=== PATIENT | female | born 1980 | race Caucasian/White ===

== ENCOUNTER 2022-03-06 10:16 | Emergency (ER) | payer OTHER, MEDICAID, SELFPAY ==
[2022-03-06] VITALS (8 sets, daily range): BP systolic 109–122; BP diastolic 61–83; PULSE 65–87; RESP 15; TEMP 37.3; O2SAT 96–98; BMI 22.8
[2022-03-06 11:28] LABS: Bacteria Urine Many (>30); Culture Indicated Urine Specimen Cultured; RBC Urine 1-5/HPF (0-5/HPF); Squamous Epithelial Cell Urine 1-5 /HPF (0-5/HPF); WBC Urine 5-10/HPF (0-5/HPF)
--- NOTE | 2022-03-06 11:46 | PC.NURSE ---
Reports history of kidney infection 2-3 years ago and this episode feels similar. Had urinary symptoms a couple weeks ago but was trying home remedies first. Denies urinary symptoms now, but has mid back pain 3/10. Also reporting throat pain when she talks for the past 3 weeks. Denies cough, congestion or pain with swallowing. History of jaw infection and has multiple issues with my teeth.
[2022-03-06] MEDS: SODIUM CHLORIDE 0.9% 1,000 ML 1000 ML IV (12:51)
[2022-03-06] MEDS: ONDANSETRON 4 MG/2 ML INJ IV (12:52)
[2022-03-06] MEDS: KETOROLAC 30 MG/ML VIAL 15 MG IV (12:52)
[2022-03-06] MEDS: HYDROMORPHONE 0.5 MG INJ IV (12:52)
[2022-03-06 13:01] LABS: Add Manual Diff / Slide Review NO; Basophils Absolute Auto 0 /uL (0-100); Basophils Percent Auto 0.6 % (0-2); Eosinophils Absolute Auto 0 /uL (0-450); Eosinophils Percent Auto 0.6 % (2-4); Hematocrit 39.5 % (36-46); Hemoglobin 13.6 g/dL (12.0-16.0); Lymphocytes Absolute Auto 800 /uL (1100-4500); Mean Corpuscular HGB Conc 34.5 % (30-36); Mean Corpuscular Hemoglobin 31.5 PG (26-34); Mean Corpuscular Volume 91.2 fL (80-100); Monocytes Absolute Auto 700 /uL (0-900); Monocytes Percent Auto 14.7 % (3-14); Neutrophils Absolute Auto 3000 /uL (1500-7000); Neutrophils Percent Auto 67.1 % (50-75); Platelet Count 326 X10^3/uL (150-400); Red Blood Cell Count 4.33 X10^6/uL (4.0-5.2); Red Cell Distribution Width 13.1 % (11.6-14.8); White Blood Cell Count 4.5 X10^3/uL (4.5-11.0)
[2022-03-06 13:02] LABS: Lactate (Lactic Acid) 0.7 mmol/L (0.7-2.1)
[2022-03-06 13:03] LABS: Alanine Aminotransferase 24 IU/L (<35); Albumin 3.7 g/dL (3.5-5.0); Albumin Globulin Ratio 1.2 (1.0-2.8); Alkaline Phosphatase 76 U/L (38-126); Aspartate Aminotransferase 32 IU/L (14-36); BUN Creatinine Ratio 6.5 (6-22); Bilirubin Total 0.4 mg/dL (0.2-1.3); Blood Urea Nitrogen 4 mg/dL (7-17); Calcium 8.7 mg/dL (8.4-10.2); Carbon Dioxide 25 mmol/L (22-32); Chloride 107 mmol/L (98-107); Estimated Glomerular Filt Rate > 60 mL/min (>60); Globulin 3.1 g/dL (1.7-4.1); Glucose 103 mg/dL (70-100); HEMOLYSIS < 15 (0-50); Lipase 60 U/L (23-300); Potassium 3.7 mmol/L (3.4-5.1); Sodium 138 mmol/L (137-145); Total Protein 6.8 g/dL (6.3-8.2)
[2022-03-06] MEDS: cefTRIAXone 1,000 MG in SODIUM CHLORIDE 0.9% 100 ML 200 MG IV (13:14)
[2022-03-06 13:19] LABS: Procalcitonin 0.04 ng/mL (<0.5)
--- NOTE | 2022-03-06 13:22 | CM.SWNOTE ---
DCP Note RN requests FACILITATOR to provide patient with state insurance information and dental coverage. Patient is 41 y/o female who presents to ED due to concern for dental infection and kidney infection. Patient recently moved from [place] and was set up with state Medicaid insurance there. FACILITATOR provides patient with website and phone number to apply for [facility] medicaid and provides patient with information about dental coverage and list of dental providers that accept medicaid. Plan: patient to d/c to home upon medical clearance, patient to seek state insurance and dental health care provider for dental treatment. SAURABH BrooksSW
--- NOTE | 2022-03-06 14:03 | ED.FEMALEGU ---
HPI - Female Genitourinary <LENORA Wasserman - Last Filed: 03/06/22 16:00> General Chief complaint: Urogenital-Female Stated complaint: throat/dental/back/kidney pain x3 weeks Time Seen by Provider: 03/06/22 12:09 Source: patient Mode of arrival: Ambulatory History of Present Illness HPI Narrative: This is a 41-year-old female presents to the emergency department with chills that started last night, multiple complaints including sweating last night, muscle aches, dental decay with concern for oral infection, subjective fever and nausea without vomiting. Patient states that she is had the dental problems for many weeks and has had antibiotics multiple times for them. She has a history of allergy to penicillins. Does not have a primary care provider. She denies any, states that she has some congestion, and her throat is sore. Related Data Previous Rx's Medication Instructions Recorded cefuroxime axetil 500 mg tablet 500 mg PO BID 7 days #14 tabs 03/06/22 chlorhexidine gluconate 0.12 % 15 ml buccal DAILY #118 mL 03/06/22 mouthwash ondansetron HCl 4 mg tablet 4 mg PO Q8H PRN nausea and 03/06/22 vomiting #14 tabs Allergies Allergy/AdvReac Type Severity Reaction Status Date / Time Penicillins Allergy Verified 03/06/22 10:35 Review of Systems <LENORA Wasserman - Last Filed: 03/06/22 16:00> Review of Systems Narrative: Review of systems is negative for acute abnormalities unless otherwise noted in HPI Patient History <LENORA Wasserman - Last Filed: 03/06/22 16:00> alcohol intake frequency: holidays/special occasions only Substance Use Type: marijuana Exam <LENORA Wasserman Last Filed: 03/06/22 16:00> Narrative Exam Narrative: Reviewed vitals signs and nursing notes. General: cooperative, comfortable, in mild acute distress HEENT: symmetrical facial expressions, moist mucous membranes, poor dental hygiene, dental decay and gingival erythema, mild anterior cervical lymphadenopathy on the right, uvula is midline, throat culture obtained, malodorous breath, patient is a smoker, no visible open wounds or abscesses intro or cavity Cardiovascular: Tachycardic rate and regular rhythm, no peripheral edema, warm extremities Respiratory: normal effort, able to speak in complete sentences, without wheezing, stridor, or abnormal breath sounds. No retractions or tachypnea. GI: abdomen soft, nontender to palpation, nondistended, without masses, rebound tenderness or exquisite tenderness with exam. 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, vaginal discharge is thin and clear, without tenderness during exam, wet mount obtained from vaginal discharge, no speculum exam MSK: moves all extremities, neurovascularly intact, no weakness, normal tone Skin: brisk capillary refill, without pallor or erythema Neuro: normal speech and cognition, A&O x3, ambulatory, clear speech Psych: mental status is grossly normal, congruent mood, normal affect, pleasant and cooperative Initial Vital Signs Initial Vital Signs: Vital Signs Temperature 99.2 F 03/06/22 10:30 Pulse Rate 65 03/06/22 10:30 Respiratory Rate 15 03/06/22 10:30 Blood Pressure 119/61 03/06/22 10:30 Pulse Oximetry 98 03/06/22 10:30 Oxygen Delivery Method 03/06/22 10:30 <Cortes Suarez MD - Last Filed: 03/07/22 07:10> Initial Vital Signs Initial Vital Signs: Vital Signs Temperature 99.2 F 03/06/22 10:30 Pulse Rate 65 03/06/22 10:30 Respiratory Rate 15 03/06/22 10:30 Blood Pressure 119/61 03/06/22 10:30 Pulse Oximetry 98 03/06/22 10:30 Oxygen Delivery Method 03/06/22 10:30 Course <LENORA Wasserman - Last Filed: 03/06/22 16:00> Orders Ordered: Discontinued Medications Hydromorphone HCl (Hydromorphone 0.5 Mg Inj) 0.5 mg IV NOW ONE Stop: 03/06/22 12:35 Last Admin: 03/06/22 12:52 Dose: 0.5 mg Documented By: JANUARY Sodium Chloride (Normal Saline 0.9%) 1,000 mls @ 1,000 mls/hr IV BOLUS ONE Stop: 03/06/22 13:33 Last Infusion: 03/06/22 14:06 Dose: 0 mls/hr Documented By: Admin: 03/06/22 12:51 Dose: 1,000 mls/hr Documented By: JANUARY Ceftriaxone Sodium 1,000 mg/ (Sodium Chloride) 100 mls @ 200 mls/hr IV NOW ONE Stop: 03/06/22 12:47 Last Infusion: 03/06/22 14:07 Dose: 0 mls/hr Documented By: Admin: 03/06/22 13:14 Dose: 200 mls/hr Documented By: JANUARY Sodium Chloride (Normal Saline 0.9%) 1,000 mls @ 1,000 mls/hr IV BOLUS ONE Stop: 03/06/22 13:45 Last Admin: 03/06/22 13:23 Dose: Not Given Documented By: JANUARY Ketorolac Tromethamine (Ketorolac 30 Mg/Ml Vial) 15 mg IV NOW ONE Stop: 03/06/22 12:35 Last Admin: 03/06/22 12:52 Dose: 15 mg Documented By: JANUARY Ondansetron HCl (Ondansetron 4 Mg/2 Ml Inj) 4 mg IV NOW ONE Stop: 03/06/22 12:35 Last Admin: 03/06/22 12:52 Dose: 4 mg Documented By: JANUARY Vital Signs Vital signs: Vital Signs - 8 hr 03/06/22 10:30 03/06/22 11:29 03/06/22 11:29 Temperature 99.2 F Pulse Rate 65 87 Respiratory Rate 15 Blood Pressure 119/61 113/69 Pulse Oximetry 98 98 Oxygen Delivery Method Room Air Room Air 03/06/22 11:30 03/06/22 11:30 03/06/22 12:00 Temperature Pulse Rate 83 Respiratory Rate Blood Pressure 109/67 112/77 Pulse Oximetry 98 Oxygen Delivery Method Room Air 03/06/22 12:00 03/06/22 12:30 03/06/22 12:30 Temperature Pulse Rate 80 82 Respiratory Rate Blood Pressure 122/83 Pulse Oximetry 98 98 Oxygen Delivery Method 03/06/22 13:00 03/06/22 13:00 03/06/22 13:30 Temperature Pulse Rate 79 Respiratory Rate Blood Pressure 111/68 115/64 Pulse Oximetry 97 Oxygen Delivery Method 03/06/22 13:30 03/06/22 14:00 03/06/22 14:00 Temperature Pulse Rate 78 72 Respiratory Rate Blood Pressure 114/74 Pulse Oximetry 96 96 Oxygen Delivery Method <Cortes Suarez MD - Last Filed: 03/07/22 07:10> Orders Ordered: Discontinued Medications Hydromorphone HCl (Hydromorphone 0.5 Mg Inj) 0.5 mg IV NOW ONE Stop: 03/06/22 12:35 Last Admin: 03/06/22 12:52 Dose: 0.5 mg Documented By: JANUARY Sodium Chloride (Normal Saline 0.9%) 1,000 mls @ 1,000 mls/hr IV BOLUS ONE Stop: 03/06/22 13:33 Last Infusion: 03/06/22 14:06 Dose: 0 mls/hr Documented By: Admin: 03/06/22 12:51 Dose: 1,000 mls/hr Documented By: JANUARY Ceftriaxone Sodium 1,000 mg/ (Sodium Chloride) 100 mls @ 200 mls/hr IV NOW ONE Stop: 03/06/22 12:47 Last Infusion: 03/06/22 14:07 Dose: 0 mls/hr Documented By: Admin: 03/06/22 13:14 Dose: 200 mls/hr Documented By: JANUARY Sodium Chloride (Normal Saline 0.9%) 1,000 mls @ 1,000 mls/hr IV BOLUS ONE Stop: 03/06/22 13:45 Last Admin: 03/06/22 13:23 Dose: Not Given Documented By: JANUARY Ketorolac Tromethamine (Ketorolac 30 Mg/Ml Vial) 15 mg IV NOW ONE Stop: 03/06/22 12:35 Last Admin: 03/06/22 12:52 Dose: 15 mg Documented By: JANUARY Ondansetron HCl (Ondansetron 4 Mg/2 Ml Inj) 4 mg IV NOW ONE Stop: 03/06/22 12:35 Last Admin: 03/06/22 12:52 Dose: 4 mg Documented By: JANUARY Vital Signs Vital signs: Vital Signs - 8 hr 03/06/22 10:30 03/06/22 11:29 03/06/22 11:29 Temperature 99.2 F Pulse Rate 65 87 Respiratory Rate 15 Blood Pressure 119/61 113/69 Pulse Oximetry 98 98 Oxygen Delivery Method Room Air Room Air 03/06/22 11:30 03/06/22 11:30 03/06/22 12:00 Temperature Pulse Rate 83 Respiratory Rate Blood Pressure 109/67 112/77 Pulse Oximetry 98 Oxygen Delivery Method Room Air 03/06/22 12:00 03/06/22 12:30 03/06/22 12:30 Temperature Pulse Rate 80 82 Respiratory Rate Blood Pressure 122/83 Pulse Oximetry 98 98 Oxygen Delivery Method 03/06/22 13:00 03/06/22 13:00 03/06/22 13:30 Temperature Pulse Rate 79 Respiratory Rate Blood Pressure 111/68 115/64 Pulse Oximetry 97 Oxygen Delivery Method 03/06/22 13:30 03/06/22 14:00 03/06/22 14:00 Temperature Pulse Rate 78 72 Respiratory Rate Blood Pressure 114/74 Pulse Oximetry 96 96 Oxygen Delivery Method MDM - Female Genitourinary <LENORA Wasserman - Last Filed: 03/06/22 16:00> Lab Data Result diagrams: 03/06/22 12:54 03/06/22 12:54 Labs: Lab Results 03/06/22 03/06/22 03/06/22 Range/Units 10:38 12:54 12:54 WBC 4.5 (4.5-11.0) X10^3/uL RBC 4.33 (4.0-5.2) X10^6/uL Hgb 13.6 (12.0-16.0) g/dL Hct 39.5 (36-46) % MCV 91.2 (80-100) fL MCH 31.5 (26-34) PG MCHC 34.5 (30-36) % RDW 13.1 (11.6-14.8) % Plt Count 326 (150-400) X10^3/uL Neut % (Auto) 67.1 (50-75) % Lymph % (Auto) 17.0 L (25-40) % [place] % (Auto) 14.7 H (3-14) % Eos % (Auto) 0.6 L (2-4) % Baso % (Auto) 0.6 (0-2) % Neut # (Auto) 3000 (9416-5080) /uL Lymph # (Auto) 800 L (8772-7307) /uL [place] # (Auto) 700 (0-900) /uL Eos # (Auto) 0 (0-450) /uL Baso # (Auto) 0 (0-100) /uL Sodium 138 (137-145) mmol/L Potassium 3.7 (3.4-5.1) mmol/L Chloride 107 (98-107) mmol/L Carbon Dioxide 25 (22-32) mmol/L BUN 4 L (7-17) mg/dL Creatinine 0.62 (0.52-1.04) mg/dL Estimated GFR > 60 (>60) mL/min BUN/Creatinine Ratio 6.5 (6-22) Glucose 103 H (70-100) mg/dL Lactate (0.7-2.1) mmol/L Calcium 8.7 (8.4-10.2) mg/dL Total Bilirubin 0.4 (0.2-1.3) mg/dL AST 32 (14-36) IU/L ALT 24 (<35) IU/L Alkaline Phosphatase 76 (38-126) U/L Total Protein 6.8 (6.3-8.2) g/dL Albumin 3.7 (3.5-5.0) g/dL Globulin 3.1 (1.7-4.1) g/dL Albumin/Globulin Ratio 1.2 (1.0-2.8) Lipase 60 (23-300) U/L Procalcitonin 0.04 (<0.5) ng/mL Urine RBC 1-5/hpf (0-5/HPF) Urine WBC 5-10/hpf H (0-5/HPF) Ur Squamous Epith Cells 1-5 /hpf (0-5/HPF) Urine Bacteria Many (>30) H (None) Ur Culture Indicated? Specimen cultured SARS-CoV-2 (PCR) (Negative) Influenza A (RT-PCR) (NEGATIVE) Influenza B (RT-PCR) (NEGATIVE) RSV (PCR) (Negative) 03/06/22 03/06/22 Range/Units 12:54 13:40 WBC (4.5-11.0) X10^3/uL RBC (4.0-5.2) X10^6/uL Hgb (12.0-16.0) g/dL Hct (36-46) % MCV (80-100) fL MCH (26-34) PG MCHC (30-36) % RDW (11.6-14.8) % Plt Count (150-400) X10^3/uL Neut % (Auto) (50-75) % Lymph % (Auto) (25-40) % [place] % (Auto) (3-14) % Eos % (Auto) (2-4) % Baso % (Auto) (0-2) % Neut # (Auto) (4861-3833) /uL Lymph # (Auto) (8707-7348) /uL [place] # (Auto) (0-900) /uL Eos # (Auto) (0-450) /uL Baso # (Auto) (0-100) /uL Sodium (137-145) mmol/L Potassium (3.4-5.1) mmol/L Chloride (98-107) mmol/L Carbon Dioxide (22-32) mmol/L BUN (7-17) mg/dL Creatinine (0.52-1.04) mg/dL Estimated GFR (>60) mL/min BUN/Creatinine Ratio (6-22) Glucose (70-100) mg/dL Lactate 0.7 (0.7-2.1) mmol/L Calcium (8.4-10.2) mg/dL Total Bilirubin (0.2-1.3) mg/dL AST (14-36) IU/L ALT (<35) IU/L Alkaline Phosphatase (38-126) U/L Total Protein (6.3-8.2) g/dL Albumin (3.5-5.0) g/dL Globulin (1.7-4.1) g/dL Albumin/Globulin Ratio (1.0-2.8) Lipase (23-300) U/L Procalcitonin (<0.5) ng/mL Urine RBC (0-5/HPF) Urine WBC (0-5/HPF) Ur Squamous Epith Cells (0-5/HPF) Urine Bacteria (None) Ur Culture Indicated? SARS-CoV-2 (PCR) Negative (Negative) Influenza A (RT-PCR) Flu a positive H (NEGATIVE) Influenza B (RT-PCR) Flu b negative (NEGATIVE) RSV (PCR) Negative (Negative) Urine Dip Bedside Urine Glucose Negative Bedside Urine Bilirubin - Negative Bedside Urine Ketone - Negative Urine Specific Heidrick 1.030 Bedside Urine Occult Blood +++ Bedside Urine pH 6.0 Bedside Urine Protein + 30 Bedside Urine Urobilinogen - Negative Bedside Urine Nitrite + Positive Bedside Urine Leukocytes - Negative Esterase MDM Narrative Medical decision making narrative: This is a 41-year-old female presents to the emergency department for fever, chills, dental decay, and suprapubic pressure with nausea. Patient's urine was found to have bacteria and wbc's, wet mount was obtained as patient states she may have vaginal irritation and that was negative for abnormality. Her lab work did not have any significant findings and is unremarkable, respiratory panel is positive for influenza a, patient was phoned and left a message on her voicemail since she left prior to these results. Other possible diagnosis' considered include; viral URI, influenza, pneumonia, pharyngitis, acute bronchitis, allergic rhinitis, pertussis, sinusitis, appendicitis, dehydration. Rest, drink plenty of fluids, NSAIDS for muscle aches and pains. Return to ED for worsening symptoms such as SOB, chest pain, inability to take adequate oral fluids, fever, or productive cough. No peritoneal signs on abdominal exam. Patient remains p.o. tolerant. Serial abdominal exam without increase in abdominal pain. Given history and exam, low suspicion for acute abdominal process, such as acute cholecystitis, pancreatitis, perforated viscus, atypical appendicitis, colitis, diverticulitis or torsion. Extensive conversation about ER return precautions and need for close follow-up. Other possible diagnosis' considered include; viral URI, influenza, pneumonia, pharyngitis, acute bronchitis, allergic rhinitis, pertussis, sinusitis, appendicitis, dehydration. Rest, drink plenty of fluids, NSAIDS for muscle aches and pains. Return to ED for worsening symptoms such as SOB, chest pain, inability to take adequate oral fluids, fever, or productive cough. Patient is appropriate and amenable to discharge home. Vital signs are stable on repeat examination is unremarkable. Patient has been informed of results. Patient has been given strict return to ER precautions for any new or worsening symptoms. Patient understands to follow up closely with outpatient providers as instructed. Patient understands plan and agrees to discharge home. All questions and concerns answered at this time. <Cortes Suarez MD - Last Filed: 03/07/22 07:10> Lab Data Labs: Lab Results 03/06/22 03/06/22 03/06/22 Range/Units 10:38 12:54 12:54 WBC 4.5 (4.5-11.0) X10^3/uL RBC 4.33 (4.0-5.2) X10^6/uL Hgb 13.6 (12.0-16.0) g/dL Hct 39.5 (36-46) % MCV 91.2 (80-100) fL MCH 31.5 (26-34) PG MCHC 34.5 (30-36) % RDW 13.1 (11.6-14.8) % Plt Count 326 (150-400) X10^3/uL Neut % (Auto) 67.1 (50-75) % Lymph % (Auto) 17.0 L (25-40) % [place] % (Auto) 14.7 H (3-14) % Eos % (Auto) 0.6 L (2-4) % Baso % (Auto) 0.6 (0-2) % Neut # (Auto) 3000 (0203-1303) /uL Lymph # (Auto) 800 L (2231-8890) /uL [place] # (Auto) 700 (0-900) /uL Eos # (Auto) 0 (0-450) /uL Baso # (Auto) 0 (0-100) /uL Sodium 138 (137-145) mmol/L Potassium 3.7 (3.4-5.1) mmol/L Chloride 107 (98-107) mmol/L Carbon Dioxide 25 (22-32) mmol/L BUN 4 L (7-17) mg/dL Creatinine 0.62 (0.52-1.04) mg/dL Estimated GFR > 60 (>60) mL/min BUN/Creatinine Ratio 6.5 (6-22) Glucose 103 H (70-100) mg/dL Lactate (0.7-2.1) mmol/L Calcium 8.7 (8.4-10.2) mg/dL Total Bilirubin 0.4 (0.2-1.3) mg/dL AST 32 (14-36) IU/L ALT 24 (<35) IU/L Alkaline Phosphatase 76 (38-126) U/L Total Protein 6.8 (6.3-8.2) g/dL Albumin 3.7 (3.5-5.0) g/dL Globulin 3.1 (1.7-4.1) g/dL Albumin/Globulin Ratio 1.2 (1.0-2.8) Lipase 60 (23-300) U/L Procalcitonin 0.04 (<0.5) ng/mL Urine RBC 1-5/hpf (0-5/HPF) Urine WBC 5-10/hpf H (0-5/HPF) Ur Squamous Epith Cells 1-5 /hpf (0-5/HPF) Urine Bacteria Many (>30) H (None) Ur Culture Indicated? Specimen cultured SARS-CoV-2 (PCR) (Negative) Influenza A (RT-PCR) (NEGATIVE) Influenza B (RT-PCR) (NEGATIVE) RSV (PCR) (Negative) 03/06/22 03/06/22 Range/Units 12:54 13:40 WBC (4.5-11.0) X10^3/uL RBC (4.0-5.2) X10^6/uL Hgb (12.0-16.0) g/dL Hct (36-46) % MCV (80-100) fL MCH (26-34) PG MCHC (30-36) % RDW (11.6-14.8) % Plt Count (150-400) X10^3/uL Neut % (Auto) (50-75) % Lymph % (Auto) (25-40) % [place] % (Auto) (3-14) % Eos % (Auto) (2-4) % Baso % (Auto) (0-2) % Neut # (Auto) (9700-6241) /uL Lymph # (Auto) (1437-7469) /uL [place] # (Auto) (0-900) /uL Eos # (Auto) (0-450) /uL Baso # (Auto) (0-100) /uL Sodium (137-145) mmol/L Potassium (3.4-5.1) mmol/L Chloride (98-107) mmol/L Carbon Dioxide (22-32) mmol/L BUN (7-17) mg/dL Creatinine (0.52-1.04) mg/dL Estimated GFR (>60) mL/min BUN/Creatinine Ratio (6-22) Glucose (70-100) mg/dL Lactate 0.7 (0.7-2.1) mmol/L Calcium (8.4-10.2) mg/dL Total Bilirubin (0.2-1.3) mg/dL AST (14-36) IU/L ALT (<35) IU/L Alkaline Phosphatase (38-126) U/L Total Protein (6.3-8.2) g/dL Albumin (3.5-5.0) g/dL Globulin (1.7-4.1) g/dL Albumin/Globulin Ratio (1.0-2.8) Lipase (23-300) U/L Procalcitonin (<0.5) ng/mL Urine RBC (0-5/HPF) Urine WBC (0-5/HPF) Ur Squamous Epith Cells (0-5/HPF) Urine Bacteria (None) Ur Culture Indicated? SARS-CoV-2 (PCR) Negative (Negative) Influenza A (RT-PCR) Flu a positive H (NEGATIVE) Influenza B (RT-PCR) Flu b negative (NEGATIVE) RSV (PCR) Negative (Negative) Urine Dip Bedside Urine Glucose Negative Bedside Urine Bilirubin - Negative Bedside Urine Ketone - Negative Urine Specific [place] 1.030 Bedside Urine Occult Blood +++ Bedside Urine pH 6.0 Bedside Urine Protein + 30 Bedside Urine Urobilinogen - Negative Bedside Urine Nitrite + Positive Bedside Urine Leukocytes - Negative Esterase Discharge Plan Departure Patient Disposition: Home Clinical Impression: Complicated urinary tract infection, Dental decay, Influenza A Instructions: DI for Kidney Infection, DI for Urinary Tract Infection (UTI) Activity Restrictions/Additional Instructions: *You have been diagnosed with a complicated urinary tract infection and likely influenza or another viral respiratory illness. I have sent chlorhexidine mouthwash to the pharmacy for daily use as needed. Please use ibuprofen, Tylenol as needed for your pain. Please stay hydrated, follow-up at the [facility] dental clinic for your mouth, they have medical care available also in [place] and I have appended their contact information. Please take all of your antibiotics, return for worsening condition, I hope you feel better soon. *What to do: *Please continue to take your regular medications as directed. [x ] New medication prescriptions sent to your pharmacy: [[facility]] [ ] New medication written as a paper prescription [ ] No new medications given *Please follow up with your primary care provider in 2-3 days, call for an appointment. Let them know you were seen in the Emergency Department and that we asked that you be seen for follow-up. We will electronically transmit a record of today's note if your PCP is in our system *If you do not have a primary care provider please contact [phone] to establish care with one of the [facility] primary care providers. [facility] in [place] Address: [address] [place] [address] P: [phone] F: [phone] *Return to Emergency Department if you should have any new, worsening, or concerning symptoms, such as [fever greater than 101F, chills, worsening pain, persistent vomiting or other bothersome symptoms]. [facility] dental clinic in [place] P: [phone] 8:30 a.m. - 4:30 p.m.Address: [address] [place] [address] P: [phone] F: [phone] Hours: 8:00 a.m. - 5:00 p.m. Tuesday - Saturdays children only For Appointments: P: [phone] 8:30 a.m. - 4:30 p.m. Prescriptions: New cefuroxime axetil 500 mg tablet 500 mg PO BID 7 Days Qty: 14 0RF chlorhexidine gluconate 0.12 % mouthwash 15 ml buccal DAILY Qty: 118 0RF ondansetron HCl 4 mg tablet 4 mg PO Q8H PRN (Reason: nausea and vomiting) Qty: 14 0RF Visit Report Forms: Patient Portal/API <Cortes Suarez MD - Last Filed: 03/07/22 07:10> Cosign ED Attending Cosignature Attestation: I was immediately available in the department for consultation. ?This documentation has been reviewed and I agree with assessment and plan. Supervised by Cortes Suarez MD
[2022-03-06 14:25] LABS: Influenza A - CEPHEID Flu A POSITIVE (NEGATIVE); Influenza B - CEPHEID Flu B NEGATIVE (NEGATIVE); Respiratory Syncytial Virus Negative (Negative)
[2022-03-06 14:27] LABS: COVID-19 CEPHEID 4-PLEX PCR Negative (Negative)
[2022-03-10 01:01] LABS: Acinetobacter baumannii Not Detected (Not Detect); Candida albicans Not Detected (Not Detect); Candida glabrata Not Detected (Not Detect); Candida krusei Not Detected (Not Detect); Candida parapsilosis Not Detected (Not Detect); Candida tropicalis Not Detected (Not Detect); E. coli Not Detected (Not Detect); Enterobacter cloacae complex Not Detected (Not Detect); Enterobacteriaceae species Not Detected (Not Detect); Enterococcus species Not Detected (Not Detect); Haemophilus influenzae Not Detected (Not Detect); Listeria monocytogenes Not Detected (Not Detect); Neisseria meningitidis Not Detected (Not Detect); Proteus species Not Detected (Not Detect); Pseudomonas aeruginosa Not Detected (Not Detect); Serratia marcescens Not Detected (Not Detect); Staphylococcus species Not Detected (Not Detect); Streptococcus agalactiae (Gr B Not Detected (Not Detect); Streptococcus pneumonia Not Detected (Not Detect); Streptococcus pyogenes (Gr A) Not Detected (Not Detect); Streptococcus species Not Detected (Not Detect)
--- NOTE | 2022-03-10 01:06 | PC.NURSE ---
Lab called regarding positive blood culture,gram positive bacilli in one aerobic blood culture.DR Esteban notified.
== END 2022-03-06 14:16 | disposition home or self-care (01) ==
PROVIDERS: Emergency Medicine; Emergency Provider Nurse Practitioner Critical Care Medicine
DX: N39.0 Urinary tract infection, site not specified (principal); J10.1 Influenza due to other identified influenza virus with other respiratory manifestations; K02.9 Dental caries, unspecified; R11.2 Nausea with vomiting, unspecified; R00.0 Tachycardia, unspecified; Z20.822 Contact with and (suspected) exposure to COVID-19
CPT/HCPCS: 0241U; 36415; 80053; 81003; 81015; 83605; 83690; 84145; 85025; 87040; 87070; 87077; 87086; 87150; 87186; 87210; 96365; 96375; 99284; J0696; J1170; J1885; J2405

== ENCOUNTER 2022-03-13 14:49 | Emergency (ER) | payer OTHER, MEDICAID, SELFPAY ==
[2022-03-13 15:42] VITALS: BP 118/69; PULSE 76; RESP 19; TEMP 36.9; O2SAT 98; BMI 23.6
[2022-03-13 15:59] LABS: Appearance Urine UA CLEAR; Bilirubin Urine UA NEGATIVE (NEGATIVE); Color Urine UA YELLOW; Glucose Urine UA NEGATIVE (Negative); Ketones Urine UA 1+ (NEGATIVE); Leukocyte Esterase Urine UA NEGATIVE (NEGATIVE); Nitrite Urine UA NEGATIVE (Negative); Occult Blood Urine UA 1+ (Negative); Protein Urine UA TRACE (Negative); Urobilinogen Urine UA 0.2 E.U./dL (0.2)
[2022-03-13 16:40] LABS: Bacteria Urine Occasional (0-1); RBC Urine 1-5/HPF (0-5/HPF); WBC Urine 1-5/HPF (0-5/HPF)
[2022-03-13 16:41] LABS: Culture Indicated Urine Cult Not Indicated; Squamous Epithelial Cell Urine 1-5 /HPF (0-5/HPF)
--- NOTE | 2022-03-13 17:29 | ED.RECABL ---
HPI - Recheck/Abnormal Lab/Rx <LENORA Wasserman - Last Filed: 03/13/22 19:58> General Chief Complaint: Recheck/Abnormal Lab/Rx Stated Complaint: Bacteria in blood per patient Time Seen by Provider: 03/13/22 17:03 Source: patient Mode of arrival: Family Vehicle History of Present Illness HPI narrative: This is a 41-year-old female returns to the emergency department after requested to do so for 1 of 2 positive blood cultures growing g positive bacilli from her visit on 03/06/2022. Patient states that she has been getting better at home but still has some symptoms, her dysuria has improved, she denies vomiting, fever or chills recently. Discussed with patient her symptoms over the phone prior to her coming in, she states that she is getting a little bit better it has not gotten. Her blood culture result is likely contaminant since it was only of 1 of 2 bottles. There was no final result. Called the lab, they state that it likely finalized without explanation and they were not sure what happened. Patient denies fever, chills, nausea vomiting, worsening symptoms. Description of abnormal result: [facility] [place] [facility] CLIA ID [id number] [address] [place] [address] RUN DATE: 03/13/22 Specimen Inquiry PAGE 1 RUN TIME: 1755 Name: Ady Ward Age/Sex: 41/F Attend Dr: Inna Espitia Unit#: [id number] : 1980Location: ED Re03/06/22 Disch: Status: DEP ER SPEC #: [id number] DIEGO: 03/06/22 STATUS: RES REQ #: [id number] SPDESC: RECD: 03/06/[address]: Inna Espitia SOURCE: Blood ENTR: 03/06/22-[address]: FAX TO: ORDERED: Bcult Procedure Result Verified Site Blood Culture Preliminary 03/13/22-1318 Gram Stain #1 Gram positive bacilli Organism 1 Gram positive bacilli BC Comments Isolated in Aerobic Bottle only Called To: SHLOMO This organism was isolated from one bottle; probable contaminant. [facility] [place] [facility] CLIA ID [id number] [address] [place] [id number] RUN DATE: 03/13/22 Specimen Inquiry PAGE 1 RUN TIME: 1755 Name: Ady Ward Age/Sex: 41/F Attend Dr[id number] Unit#: [id number] : 1980Location: ED Re03/06/22 Disch: Status: DEP ER SPEC #: [id number] DIEGO: 03/06/22 STATUS: COMP REQ #: [id number] SPDESC: RECD: 03/06/[address]: Inna Espitia SOURCE: Blood ENTR: 03/06/22-[address]: FAX TO: ORDERED: Bcult Procedure Result Verified Site Blood Culture Final 03/11/22 NO GROWTH AFTER 5 DAYS NO GROWTH AFTER 5 DAYS Related Data Previous Rx's Medication Instructions Recorded chlorhexidine gluconate 0.12 % 15 ml buccal DAILY #118 mL 03/06/22 mouthwash ondansetron HCl 4 mg tablet 4 mg PO Q8H PRN nausea and 03/06/22 vomiting #14 tabs Allergies Allergy/AdvReac Type Severity Reaction Status Date / Time Penicillins Allergy Verified 03/06/22 10:35 Review of Systems <LENORA Wasserman - Last Filed: 03/13/22 19:58> Review of Systems Narrative: Review of systems is negative for acute abnormalities unless otherwise noted in HPI Patient History <LENORA Wasserman - Last Filed: 03/13/22 19:58> Social History Smoking Status: Current every day smoker Smoking Status: Current every day smoker tobacco type: cigarettes alcohol intake frequency: holidays/special occasions only Substance Use Type: marijuana Exam <LENORA Wasserman - Last Filed: 03/13/22 19:58> Narrative Exam Narrative: Reviewed vitals signs and nursing notes. General: cooperative, comfortable, in no acute distress, well groomed HEENT: symmetrical facial expressions, moist mucous membranes, poor dental hygiene with decay Cardiovascular: regular rate and rhythm, no peripheral edema, warm extremities GI: abdomen soft, nontender to palpation, nondistended, without masses, rebound tenderness or exquisite tenderness with exam. MSK: moves all extremities, neurovascularly intact, no weakness, normal tone Skin: brisk capillary refill, without pallor or erythema Neuro: normal speech and cognition, A&O x3, ambulatory, clear speech Psych: mental status is grossly normal, congruent mood, normal affect, pleasant and cooperative Initial Vital Signs Initial Vital Signs: Vital Signs Temperature 98.4 F 03/13/22 15:42 Pulse Rate 76 03/13/22 15:42 Respiratory Rate 19 03/13/22 15:42 Blood Pressure 118/69 03/13/22 15:42 Pulse Oximetry 98 03/13/22 15:42 Oxygen Delivery Method 03/13/22 15:42 <Radha Mcclain DO - Last Filed: 03/15/22 12:40> Initial Vital Signs Initial Vital Signs: Vital Signs Temperature 98.4 F 03/13/22 15:42 Pulse Rate 76 03/13/22 15:42 Respiratory Rate 19 03/13/22 15:42 Blood Pressure 118/69 03/13/22 15:42 Pulse Oximetry 98 03/13/22 15:42 Oxygen Delivery Method 03/13/22 15:42 Course <LENORA Wasserman - Last Filed: 03/13/22 19:58> Orders Ordered: ED Orders 03/13/22 15:47 Urinalysis and Microscopic Stat 03/13/22 17:30 Complete Blood Count AUTO DIFF Stat Comprehensive Metabolic Panel Stat Lactate (Lactic Acid) Stat Lipase Stat Partial Thromboplastin Time Stat Procalcitonin Stat Prothrombin Time INR Stat Vital Signs Vital signs: Vital Signs - 8 hr 03/13/22 15:42 03/13/22 17:44 Temperature 98.4 F 98.3 F Pulse Rate 76 72 Respiratory Rate 19 16 Blood Pressure 118/69 120/79 Pulse Oximetry 98 98 Oxygen Delivery Method Room Air Room Air <Radha Mcclain DO - Last Filed: 03/15/22 12:40> Orders Ordered: ED Orders 03/13/22 15:47 Urinalysis and Microscopic Stat 03/13/22 17:30 Complete Blood Count AUTO DIFF Stat Comprehensive Metabolic Panel Stat Lactate (Lactic Acid) Stat Lipase Stat Partial Thromboplastin Time Stat Procalcitonin Stat Prothrombin Time INR Stat Vital Signs Vital signs: Vital Signs - 8 hr 03/13/22 15:42 03/13/22 17:44 Temperature 98.4 F 98.3 F Pulse Rate 76 72 Respiratory Rate 19 16 Blood Pressure 118/69 120/79 Pulse Oximetry 98 98 Oxygen Delivery Method Room Air Room Air MDM - Recheck/Abnormal Lab/Rx <LENORA Wasserman - Last Filed: 03/13/22 19:58> Lab Data Result diagrams: 03/13/22 17:30 03/13/22 17:30 Labs: Lab Results 03/13/22 03/13/22 03/13/22 Range/Units 15:47 17:30 17:30 WBC 7.0 (4.5-11.0) X10^3/uL RBC 4.43 (4.0-5.2) X10^6/uL Hgb 13.9 (12.0-16.0) g/dL Hct 40.2 (36-46) % MCV 90.8 (80-100) fL MCH 31.4 (26-34) PG MCHC 34.5 (30-36) % RDW 13.4 (11.6-14.8) % Plt Count 435 H (150-400) X10^3/uL Neut % (Auto) 41.7 L (50-75) % Lymph % (Auto) 43.8 H (25-40) % Clay % (Auto) 5.5 (3-14) % Eos % (Auto) 8.0 H (2-4) % Baso % (Auto) 1.0 (0-2) % Neut # (Auto) 2900 (7603-2020) /uL Lymph # (Auto) 3000 (2694-6800) /uL Clay # (Auto) 400 (0-900) /uL Eos # (Auto) 600 H (0-450) /uL Baso # (Auto) 100 (0-100) /uL PT 11.2 (10.1-12.7) SECONDS INR 1.0 (0.9-1.3) APTT 27 (26-36) SECONDS Sodium (137-145) mmol/L Potassium (3.4-5.1) mmol/L Chloride (98-107) mmol/L Carbon Dioxide (22-32) mmol/L BUN (7-17) mg/dL Creatinine (0.52-1.04) mg/dL Estimated GFR (>60) mL/min BUN/Creatinine Ratio (6-22) Glucose (70-100) mg/dL Lactate (0.7-2.1) mmol/L Calcium (8.4-10.2) mg/dL Total Bilirubin (0.2-1.3) mg/dL AST (14-36) IU/L ALT (<35) IU/L Alkaline Phosphatase (38-126) U/L Total Protein (6.3-8.2) g/dL Albumin (3.5-5.0) g/dL Globulin (1.7-4.1) g/dL Albumin/Globulin Ratio (1.0-2.8) Lipase (23-300) U/L Procalcitonin (<0.5) ng/mL Urine Color Yellow Urine Appearance Clear Urine pH 7.0 (4.5-8.0) Ur Specific Isabela 1.020 (1.000-1.035) Urine Protein Trace H (Negative) Urine Glucose (UA) Negative (Negative) g/dL Urine Ketones 1+ H (NEGATIVE) Urine Occult Blood 1+ H (Negative) Urine Nitrate Negative (Negative) Urine Bilirubin Negative (NEGATIVE) Urine Urobilinogen 0.2 (0.2) E.U./dL Ur Leukocyte Esterase Negative (NEGATIVE) Urine RBC 1-5/hpf (0-5/HPF) Urine WBC 1-5/hpf (0-5/HPF) Ur Squamous Epith Cells 1-5 /hpf (0-5/HPF) Urine Bacteria Occasional (0-1) (None) Ur Culture Indicated? Cult not indicated 03/13/22 03/13/22 Range/Units 17:30 17:30 WBC (4.5-11.0) X10^3/uL RBC (4.0-5.2) X10^6/uL Hgb (12.0-16.0) g/dL Hct (36-46) % MCV (80-100) fL MCH (26-34) PG MCHC (30-36) % RDW (11.6-14.8) % Plt Count (150-400) X10^3/uL Neut % (Auto) (50-75) % Lymph % (Auto) (25-40) % Clay % (Auto) (3-14) % Eos % (Auto) (2-4) % Baso % (Auto) (0-2) % Neut # (Auto) (3911-0626) /uL Lymph # (Auto) (5783-0013) /uL Clay # (Auto) (0-900) /uL Eos # (Auto) (0-450) /uL Baso # (Auto) (0-100) /uL PT (10.1-12.7) SECONDS INR (0.9-1.3) APTT (26-36) SECONDS Sodium 140 (137-145) mmol/L Potassium 3.8 (3.4-5.1) mmol/L Chloride 105 (98-107) mmol/L Carbon Dioxide 28 (22-32) mmol/L BUN 11 (7-17) mg/dL Creatinine 0.66 (0.52-1.04) mg/dL Estimated GFR > 60 (>60) mL/min BUN/Creatinine Ratio 16.7 (6-22) Glucose 93 (70-100) mg/dL Lactate 0.8 (0.7-2.1) mmol/L Calcium 8.5 (8.4-10.2) mg/dL Total Bilirubin 0.5 (0.2-1.3) mg/dL AST 33 (14-36) IU/L ALT 49 H (<35) IU/L Alkaline Phosphatase 104 (38-126) U/L Total Protein 6.9 (6.3-8.2) g/dL Albumin 4.0 (3.5-5.0) g/dL Globulin 2.9 (1.7-4.1) g/dL Albumin/Globulin Ratio 1.4 (1.0-2.8) Lipase 58 (23-300) U/L Procalcitonin 0.03 (<0.5) ng/mL Urine Color Urine Appearance Urine pH (4.5-8.0) Ur Specific Isabela (1.000-1.035) Urine Protein (Negative) Urine Glucose (UA) (Negative) g/dL Urine Ketones (NEGATIVE) Urine Occult Blood (Negative) Urine Nitrate (Negative) Urine Bilirubin (NEGATIVE) Urine Urobilinogen (0.2) E.U./dL Ur Leukocyte Esterase (NEGATIVE) Urine RBC (0-5/HPF) Urine WBC (0-5/HPF) Ur Squamous Epith Cells (0-5/HPF) Urine Bacteria (None) Ur Culture Indicated? MDM Narrative Medical decision making narrative: This is a 41-year-old female presents to the emergency department for a positive blood culture bottle growing Gram-positive bacilli on 03/06/2022 from her blood cultures, she was treated for urosepsis, was influenza A positive, and 1 of 2 bottles was positive for Gram-positive bacilli which did not finally result or did and there was a documentation air. Today her lab work was repeated, she had a medical screening evaluation, she does not have any signs of infection today, she is still taking her cefuroxime which was prescribed for urinary tract infection. Patient's lab work is unremarkable, her symptoms have improved, encouraged to stay hydrated and to come back for any worsening condition. Patient is appropriate and amenable to discharge home. Vital signs are stable on repeat examination is unremarkable. Patient has been informed of results. Patient has been given strict return to ER precautions for any new or worsening symptoms. Patient understands to follow up closely with outpatient providers as instructed. Patient understands plan and agrees to discharge home. All questions and concerns answered at this time. <Radha Mcclain, DO - Last Filed: 03/15/22 12:40> Lab Data Labs: Lab Results 03/13/22 03/13/22 03/13/22 Range/Units 15:47 17:30 17:30 WBC 7.0 (4.5-11.0) X10^3/uL RBC 4.43 (4.0-5.2) X10^6/uL Hgb 13.9 (12.0-16.0) g/dL Hct 40.2 (36-46) % MCV 90.8 (80-100) fL MCH 31.4 (26-34) PG MCHC 34.5 (30-36) % RDW 13.4 (11.6-14.8) % Plt Count 435 H (150-400) X10^3/uL Neut % (Auto) 41.7 L (50-75) % Lymph % (Auto) 43.8 H (25-40) % Clay % (Auto) 5.5 (3-14) % Eos % (Auto) 8.0 H (2-4) % Baso % (Auto) 1.0 (0-2) % Neut # (Auto) 2900 (6240-4534) /uL Lymph # (Auto) 3000 (1121-0613) /uL Clay # (Auto) 400 (0-900) /uL Eos # (Auto) 600 H (0-450) /uL Baso # (Auto) 100 (0-100) /uL PT 11.2 (10.1-12.7) SECONDS INR 1.0 (0.9-1.3) APTT 27 (26-36) SECONDS Sodium (137-145) mmol/L Potassium (3.4-5.1) mmol/L Chloride (98-107) mmol/L Carbon Dioxide (22-32) mmol/L BUN (7-17) mg/dL Creatinine (0.52-1.04) mg/dL Estimated GFR (>60) mL/min BUN/Creatinine Ratio (6-22) Glucose (70-100) mg/dL Lactate (0.7-2.1) mmol/L Calcium (8.4-10.2) mg/dL Total Bilirubin (0.2-1.3) mg/dL AST (14-36) IU/L ALT (<35) IU/L Alkaline Phosphatase (38-126) U/L Total Protein (6.3-8.2) g/dL Albumin (3.5-5.0) g/dL Globulin (1.7-4.1) g/dL Albumin/Globulin Ratio (1.0-2.8) Lipase (23-300) U/L Procalcitonin (<0.5) ng/mL Urine Color Yellow Urine Appearance Clear Urine pH 7.0 (4.5-8.0) Ur Specific Isabela 1.020 (1.000-1.035) Urine Protein Trace H (Negative) Urine Glucose (UA) Negative (Negative) g/dL Urine Ketones 1+ H (NEGATIVE) Urine Occult Blood 1+ H (Negative) Urine Nitrate Negative (Negative) Urine Bilirubin Negative (NEGATIVE) Urine Urobilinogen 0.2 (0.2) E.U./dL Ur Leukocyte Esterase Negative (NEGATIVE) Urine RBC 1-5/hpf (0-5/HPF) Urine WBC 1-5/hpf (0-5/HPF) Ur Squamous Epith Cells 1-5 /hpf (0-5/HPF) Urine Bacteria Occasional (0-1) (None) Ur Culture Indicated? Cult not indicated 03/13/22 03/13/22 Range/Units 17:30 17:30 WBC (4.5-11.0) X10^3/uL RBC (4.0-5.2) X10^6/uL Hgb (12.0-16.0) g/dL Hct (36-46) % MCV (80-100) fL MCH (26-34) PG MCHC (30-36) % RDW (11.6-14.8) % Plt Count (150-400) X10^3/uL Neut % (Auto) (50-75) % Lymph % (Auto) (25-40) % Clay % (Auto) (3-14) % Eos % (Auto) (2-4) % Baso % (Auto) (0-2) % Neut # (Auto) (6884-9529) /uL Lymph # (Auto) (6195-1066) /uL Clay # (Auto) (0-900) /uL Eos # (Auto) (0-450) /uL Baso # (Auto) (0-100) /uL PT (10.1-12.7) SECONDS INR (0.9-1.3) APTT (26-36) SECONDS Sodium 140 (137-145) mmol/L Potassium 3.8 (3.4-5.1) mmol/L Chloride 105 (98-107) mmol/L Carbon Dioxide 28 (22-32) mmol/L BUN 11 (7-17) mg/dL Creatinine 0.66 (0.52-1.04) mg/dL Estimated GFR > 60 (>60) mL/min BUN/Creatinine Ratio 16.7 (6-22) Glucose 93 (70-100) mg/dL Lactate 0.8 (0.7-2.1) mmol/L Calcium 8.5 (8.4-10.2) mg/dL Total Bilirubin 0.5 (0.2-1.3) mg/dL AST 33 (14-36) IU/L ALT 49 H (<35) IU/L Alkaline Phosphatase 104 (38-126) U/L Total Protein 6.9 (6.3-8.2) g/dL Albumin 4.0 (3.5-5.0) g/dL Globulin 2.9 (1.7-4.1) g/dL Albumin/Globulin Ratio 1.4 (1.0-2.8) Lipase 58 (23-300) U/L Procalcitonin 0.03 (<0.5) ng/mL Urine Color Urine Appearance Urine pH (4.5-8.0) Ur Specific Isabela (1.000-1.035) Urine Protein (Negative) Urine Glucose (UA) (Negative) g/dL Urine Ketones (NEGATIVE) Urine Occult Blood (Negative) Urine Nitrate (Negative) Urine Bilirubin (NEGATIVE) Urine Urobilinogen (0.2) E.U./dL Ur Leukocyte Esterase (NEGATIVE) Urine RBC (0-5/HPF) Urine WBC (0-5/HPF) Ur Squamous Epith Cells (0-5/HPF) Urine Bacteria (None) Ur Culture Indicated? Discharge Plan Departure Patient Disposition: Home Clinical Impression: Encounter for medical screening examination Activity Restrictions/Additional Instructions: *You have been diagnosed with improvement of your infection and blood work. The antibiotics appear to have help treat your infection. There is no signs of infection in your urine today. Please stay hydrated, continue treating her symptoms as needed, ibuprofen and Tylenol and follow-up with a dentist whenever you can. Thank you for coming back in, I hope you feel better and can get some rest tonight. Thank you for your patience, sorry for the long day. *What to do: *Please continue to take your regular medications as directed. [ ] New medication prescriptions sent to your pharmacy: [ ] [ ] New medication written as a paper prescription [ x] No new medications given *Please follow up with your primary care provider in 2-3 days, call for an appointment. Let them know you were seen in the Emergency Department and that we asked that you be seen for follow-up. We will electronically transmit a record of today's note if your PCP is in our system *If you do not have a primary care provider please contact [phone] to establish care with one of the [facility] [place] [facility] primary care providers. *Return to Emergency Department if you should have any new, worsening, or concerning symptoms, such as [fever greater than 101F, chills, worsening pain, persistent vomiting or other bothersome symptoms]. Prescriptions: No Action chlorhexidine gluconate 0.12 % mouthwash 15 ml buccal DAILY Qty: 118 0RF ondansetron HCl 4 mg tablet 4 mg PO Q8H PRN (Reason: nausea and vomiting) Qty: 14 0RF Visit Report Forms: Patient Portal/API <Radha Mcclain DO - Last Filed: 03/15/22 12:40> Cosign ED Attending Justin Attestation: I was immediately available in the department for consultation. Documentation has been reviewed. Case was discussed. Patient had 1 of 2 positive blood cultures from 03/06 and a positive urine culture with Klebsiella pneumonia. Blood culture is only Gram-positive bacilli and has not been resulted farther although it has been 5 days. Patient had been called back for re-evaluation felt safe for disposition home.
[2022-03-13 17:44] VITALS: BP 120/79; PULSE 72; RESP 16; TEMP 36.8; O2SAT 98
[2022-03-13 18:00] LABS: Prothrombin Time 11.2 SECONDS (10.1-12.7)
[2022-03-13 18:03] LABS: PTT Partial Thromboplastin Tim 27 SECONDS (26-36)
[2022-03-13 18:04] LABS: Lactate (Lactic Acid) 0.8 mmol/L (0.7-2.1)
[2022-03-13 18:06] LABS: Alanine Aminotransferase 49 IU/L (<35); Albumin Globulin Ratio 1.4 (1.0-2.8); Alkaline Phosphatase 104 U/L (38-126); Aspartate Aminotransferase 33 IU/L (14-36); BUN Creatinine Ratio 16.7 (6-22); Bilirubin Total 0.5 mg/dL (0.2-1.3); Blood Urea Nitrogen 11 mg/dL (7-17); Calcium 8.5 mg/dL (8.4-10.2); Carbon Dioxide 28 mmol/L (22-32); Chloride 105 mmol/L (98-107); Estimated Glomerular Filt Rate > 60 mL/min (>60); Globulin 2.9 g/dL (1.7-4.1); Glucose 93 mg/dL (70-100); HEMOLYSIS < 15 (0-50); Lipase 58 U/L (23-300); Potassium 3.8 mmol/L (3.4-5.1); Sodium 140 mmol/L (137-145); Total Protein 6.9 g/dL (6.3-8.2)
[2022-03-13 18:11] LABS: Add Manual Diff / Slide Review NO; Basophils Absolute Auto 100 /uL (0-100); Eosinophils Absolute Auto 600 /uL (0-450); Hematocrit 40.2 % (36-46); Hemoglobin 13.9 g/dL (12.0-16.0); Lymphocytes Absolute Auto 3000 /uL (1100-4500); Lymphocytes Percent Auto 43.8 % (25-40); Mean Corpuscular HGB Conc 34.5 % (30-36); Mean Corpuscular Hemoglobin 31.4 PG (26-34); Mean Corpuscular Volume 90.8 fL (80-100); Monocytes Absolute Auto 400 /uL (0-900); Monocytes Percent Auto 5.5 % (3-14); Neutrophils Absolute Auto 2900 /uL (1500-7000); Neutrophils Percent Auto 41.7 % (50-75); Platelet Count 435 X10^3/uL (150-400); Red Blood Cell Count 4.43 X10^6/uL (4.0-5.2); Red Cell Distribution Width 13.4 % (11.6-14.8)
[2022-03-13 18:21] LABS: Procalcitonin 0.03 ng/mL (<0.5)
== END 2022-03-13 18:56 | disposition home or self-care (01) ==
PROVIDERS: Emergency Medicine; Emergency Provider Nurse Practitioner Critical Care Medicine
DX: Z11.2 Encounter for screening for other bacterial diseases (principal)
CPT/HCPCS: 36415; 80053; 81001; 83605; 83690; 84145; 85025; 85610; 85730; 99281; 99283

== ENCOUNTER 2023-03-02 04:32 | Emergency (ER) | payer OTHER, SELFPAY ==
--- NOTE | 2023-03-02 04:45 | ED.GENADULT ---
HPI - General Adult General Chief complaint: Extremity Injury, Lower Stated complaint: left knee throbbing and pain Time Seen by Provider: 03/02/23 04:37 History of Present Illness HPI narrative: Otherwise healthy 42-year-old woman who describes a planted foot twisting body injury to the left knee about 7:00 pm last night. She thought that symptoms would improve, went to bed and woke her up in the middle of the night and she is been unable to sleep or bear weight on the knee since. She has not taken any home medications. She describes no fevers, redness to the knee, ankle or hip injury. Related Data Previous Rx's Medication Instructions Recorded chlorhexidine gluconate 0.12 % 15 ml buccal DAILY #118 mL 03/06/22 mouthwash ondansetron HCl 4 mg tablet 4 mg PO Q8H PRN nausea and 03/06/22 vomiting #14 tabs Allergies Allergy/AdvReac Type Severity Reaction Status Date / Time Penicillins Allergy Verified 03/02/23 04:52 Review of Systems Review of Systems Narrative: Pertinent positive and negative findings as per HPI Patient History Social History Smoking Status: Current every day smoker Smoking Status: Current every day smoker tobacco type: cigarettes alcohol intake frequency: holidays/special occasions only Substance Use Type: marijuana Exam Initial Vital Signs Initial Vital Signs: Vital Signs Temperature 98.0 F 03/02/23 04:46 Pulse Rate 76 03/02/23 04:46 Respiratory Rate 18 03/02/23 04:46 Blood Pressure 103/61 03/02/23 04:46 Pulse Oximetry 98 03/02/23 04:46 Oxygen Delivery Method Room Air 03/02/23 04:46 General: Alert appropriate in no acute distress Respiratory: Able to speak in full sentences, no obvious respiratory distress Skin: No obvious rashes, warm and dry Neurologic: Grossly intact no obvious asymmetries or abnormalities Psych: appropriate insight and affect, cooperative Extremity: Left hip and left ankle are unremarkable. She is got a small left knee effusion with tenderness along the lateral collateral ligament. There is no associated bony tenderness. She is able to extend the knee fully but can flex only approximately 10? secondary to pain. There is no tenderness into the gastroc muscle. Course Orders Ordered: ED Orders 03/02/23 04:53 XR knee LT 3V Stat Discontinued Medications Ibuprofen (Ibuprofen 400 Mg Tablet) 400 mg PO NOW ONE Stop: 03/02/23 04:54 Last Admin: 03/02/23 05:07 Dose: 400 mg Documented By: TAURUS Ondansetron HCl (Ondansetron 4 Mg Odt) 4 mg SL NOW ONE Stop: 03/02/23 05:18 Last Admin: 03/02/23 05:27 Dose: 4 mg Documented By: UMAIR Oxycodone/Acetaminophen (Oxycodone/Acetaminophen 5/325 Tablet) 1 tab PO NOW ONE Stop: 03/02/23 04:54 Last Admin: 03/02/23 05:06 Dose: 1 tab Documented By: TAURUS Oxycodone/Acetaminophen (Oxycodone/Apap 5/325 Prepack) 1 bottle MISC DIRECTED ONE Stop: 03/02/23 04:54 Last Admin: 03/02/23 05:07 Dose: 1 bottle Documented By: TAURUS Vital Signs Vital signs: Vital Signs - 8 hr 03/02/23 04:46 03/02/23 04:53 03/02/23 05:02 Temperature 98.0 F Pulse Rate 76 78 Pulse Rate [Left Dorsalis Pedis] 71 Respiratory Rate 18 Blood Pressure 103/61 Pulse Oximetry 98 99 Oxygen Delivery Method Room Air Room Air Medical Decision Making MDM Narrative Medical decision making narrative: CC: Acute left knee pain Data collected from: patient Differential considered: Fracture, ligamentous injury, strain doubt infectious etiology Exam documented above, pertinent findings include: Left knee pain with lateral collateral ligament tenderness. Pain is too much to fully assess knee stability. No tenderness over patella Imaging studies independently reviewed: X-ray shows no acute bony injury Treatments: Oral ibuprofen and Percocet Procedure: Left knee immobilizer is placed without difficulty by me. She is neurovascularly intact. Crutches are used and nursing staff helps with education. Discussion: X-ray is unremarkable for bony injury. Patient is feeling somewhat better after ibuprofen and Percocet. She placed in a knee immobilizer with suspicion for left lateral collateral knee strain. Explained to her the need for making sure the knee is stable, using crutches as required, adequate pain control and ice. If she is not improving she will need to follow-up with [facility] and may need advanced imaging at that time. She is given information to contact them if symptoms are not improving. She is safe for discharge Discharge Plan Departure Patient Disposition: Home Clinical Impression: Knee Injury Qualifiers: Encounter type: initial encounter Laterality: left Qualified Code(s): S89.92XA - Unspecified injury of left lower leg, initial encounter Instructions: DI for Knee Sprain Activity Restrictions/Additional Instructions: Thank you for coming in today I believe that you strained the lateral collateral ligament of your knee. The x-rays do not show any broken bones. Using the knee immobilizer to make sure that your knee does not give out on you causing further injury as well as ice for inflammation may be helpful. Using 400 mg of ibuprofen (2 [id number] pills) and 1 Tylenol every 6 hours to control pain and for severe pain using 400 mg of ibuprofen and 1 Percocet. Percocet does have narcotic in it and likely will make you constipated. I would recommend adding a stool softener. Please call to schedule a ER follow-up appointment with [facility] at [phone] within the next week If you find that you are getting worse or develop any new symptoms, please feel free to return to the emergency department for further evaluation. Prescriptions: No Action chlorhexidine gluconate 0.12 % mouthwash 15 ml buccal DAILY Qty: 118 0RF ondansetron HCl 4 mg tablet 4 mg PO Q8H PRN (Reason: nausea and vomiting) Qty: 14 0RF Referrals: Miscellaneous,Doctor, MD [Primary Care Provider] - Stand Alone Forms: Patient Portal/API
[2023-03-02 04:46] VITALS: BP 103/61; PULSE 76; RESP 18; TEMP 36.7; O2SAT 98; BMI 24.3
[2023-03-02 04:53] VITALS: PULSE 71
--- NOTE | 2023-03-02 04:53 | DI.RAD.S_ITS ---
PROCEDURE: XR KNEE LT 3V INDICATIONS: twisting injury to knee TECHNIQUE: 3 views of the knee were acquired. COMPARISON: None. FINDINGS: Bones: No fractures or dislocations. No suspicious bony lesions. Normal alignment. Joint spaces are maintained. Soft tissues: No joint effusion. No suspicious soft tissue calcifications. IMPRESSION: No acute bony abnormality or significant effusion. Dictated by: Shaina Ramachandran M.D. on 03/02/2023 at 8:21 Approved by: Shaina Ramachandran M.D. on 03/02/2023 at 8:23
[2023-03-02 05:02] VITALS: PULSE 78; O2SAT 99
[2023-03-02] MEDS: OXYCODONE/ACETAMINOPHEN 5/325 TABLET 1 TAB PO (05:06)
[2023-03-02] MEDS: IBUPROFEN 400 MG TABLET PO (05:07)
[2023-03-02] MEDS: OXYCODONE/APAP 5/325 PREPACK 1 BOTTLE MISC (05:07)
[2023-03-02] MEDS: ONDANSETRON 4 MG ODT SL (05:27)
[2023-03-02 05:30] VITALS: BP 120/70; PULSE 74; O2SAT 99
[2023-03-02 06:00] VITALS: BP 115/73; PULSE 87; O2SAT 97
--- NOTE | 2023-03-02 18:06 | PC.NURSE ---
Pt called stating that she did not feel she was treated properly as she was prescribed only a pre pack of percocet. Reviewed discharge instructions. Pt is requesting additional narcotic pain medication. I informed her that she would have to return to the emergency department if she wanted additional prescriptions however the attending on duty would evaluate her and I could not guarantee that the provider would prescribe what she was requesting. Pt states staff was kind/thorough, she just wanted additional pain medication and thought we should have done better. She denies any change in condition. Encouraged to f/u as needed and indicated and return for any needs, concerns, worsening of symptoms.
== END 2023-03-02 06:13 | disposition home or self-care (01) ==
PROVIDERS: Emergency Provider Emergency Medicine
DX: S89.82XA Other specified injuries of left lower leg, initial encounter (principal); X50.0XXA Overexertion from strenuous movement or load, initial encounter
CPT/HCPCS: 73562; 99283; 99284

== ENCOUNTER 2023-10-24 20:47 | Emergency (ER) | payer OTHER, SELFPAY ==
[2023-10-24 20:49] VITALS: BP 134/77; PULSE 87; RESP 16; TEMP 36.6; O2SAT 100; BMI 24.5
--- NOTE | 2023-10-24 21:14 | ED_ITS ---
HPI - General Adult General Chief complaint: Dental/Oral Stated complaint: impacted tooth/face swelling/heart feels weird Time Seen by Provider: 10/24/23 20:52 Source: patient Mode of arrival: Ambulatory History of Present Illness HPI narrative: 42-year-old woman with no significant medical history notes she has her 2nd molar left upper broken off at the root. She has had intermittent episodes with infection at that site. Over the last 24 hours she is noticed some tenderness and now some facial swelling. The pain has been controlled with Naprosyn at home. She is hoping to get some antibiotics to avoid significant complications. She is also concerned that she is more anxious and that the infection is spreading through her body. She did have a glass of wine prior to arrival to help with both anxiety and pain control. Vital signs on arrival are completely unremarkable. Related Data Previous Rx's Medication Instructions Recorded chlorhexidine gluconate 0.12 % 15 ml buccal DAILY #118 mL 03/06/22 mouthwash ondansetron HCl 4 mg tablet 4 mg PO Q8H PRN nausea and 03/06/22 vomiting #14 tabs clindamycin HCl 300 mg capsule 300 mg PO TID 7 days #21 caps 10/24/23 Allergies Allergy/AdvReac Type Severity Reaction Status Date / Time Penicillins AdvReac Childhood Verified 10/24/23 20:49 reaction Review of Systems Review of Systems Narrative: Pertinent positive and negative findings as per HPI Patient History Social History Smoking Status: Current every day smoker Smoking Status: Current every day smoker tobacco type: cigarettes alcohol intake frequency: holidays/special occasions only Substance Use Type: marijuana Exam Initial Vital Signs Initial Vital Signs: Vital Signs Temperature 97.9 F 10/24/23 20:49 Pulse Rate 87 10/24/23 20:49 Respiratory Rate 16 10/24/23 20:49 Blood Pressure 134/77 10/24/23 20:49 Pulse Oximetry 100 10/24/23 20:49 Oxygen Delivery Method Room Air 10/24/23 20:49 General: Alert appropriate in no acute distress HEENT: There is some minor fullness over her left maxillary area with no obvious abscess or drainage. No significant cervical adenopathy Respiratory: Able to speak in full sentences, no obvious respiratory distress Skin: No obvious rashes, warm and dry Neurologic: Grossly intact no obvious asymmetries or abnormalities Psych: appropriate insight and affect, cooperative Course Vital Signs Vital signs: Vital Signs - 8 hr 10/24/23 20:49 Temperature 97.9 F Pulse Rate 87 Respiratory Rate 16 Blood Pressure 134/77 Pulse Oximetry 100 Oxygen Delivery Method Room Air Medical Decision Making MDM Narrative Medical decision making narrative: CC: Facial swelling and dental pain Complicating co-morbidities: Known fractured tooth Data collected from: patient Social determinants of health that may influence the patients condition: Patient has not had dental insurance until recently, is planning to contact dentist tomorrow for definitive treatment Differential considered: Dental abscess, sinusitis, cellulitis Exam documented above, pertinent findings include: Minor swelling to the left maxillary area, no obvious palpable abscess or drainable source identified. Remainder of exam is benign Discussion: Developing abscess left upper quadrant, patient is allergic to penicillin so we will treat her with clindamycin, 1st dose given in the emergency department. She is finding that Alleve is adequate for pain control. She understands the need for definitive treatment with dentist. Antibiotics were given, this time there is no indication of systemic disease, reason for additional lab work, imaging or hospitalization. Questions are answered and she is safe for discharge Discharge Plan Departure Patient Disposition: Home Clinical Impression: Dental abscess Instructions: DI for Dental Pain Activity Restrictions/Additional Instructions: Thank you for coming in today It does look like your broken tooth on the upper left side is causing some more problems. Please continue using Alleve morning and night to help with pain. I have given you a prescription for clindamycin to help with infection. Definitive treatment for dental issues is going to a dentist. Please do call and see if you are able to get in in the next week or so. Typically they do prefer that infection be treated before any procedures are done but you likely need to have the root from the broken tooth removed so that you do not continue to have infections. 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 Prescriptions: New clindamycin HCl 300 mg capsule 300 mg PO TID 7 Days Qty: 21 0RF No Action chlorhexidine gluconate 0.12 % mouthwash 15 ml buccal DAILY Qty: 118 0RF ondansetron HCl 4 mg tablet 4 mg PO Q8H PRN (Reason: nausea and vomiting) Qty: 14 0RF Referrals: Miscellaneous,Doctor, MD [Primary Care Provider] - Stand Alone Forms: Patient Portal/API
[2023-10-24] MEDS: CLINDAMYCIN 150 MG CAPSULE 300 MG PO (21:28)
== END 2023-10-24 21:31 | disposition home or self-care (01) ==
PROVIDERS: Emergency Provider Emergency Medicine
DX: K04.7 Periapical abscess without sinus (principal)
CPT/HCPCS: 99283